=== PATIENT | female | born 1995 | race Caucasian/White ===

== ENCOUNTER 2017-12-03 16:47 | Inpatient (IN) | payer OTHER ==
[2017-12-03 17:22] LABS: ABS Basophils 0.1 10^3/ul (0-0.2); ABS Eosinophils 0.1 10^3/ul (0-0.6); ABS Lymphocytes 2.8 10^3/ul (1.0-4.8); ABS Monocytes 0.7 10^3/ul (0-0.8); ABS Neutrophils 5.4 10^3/ul (1.5-7.7); ABS Nucleated RBC 0 10^3/ul; Eosinophil % 1.3 % (0-6); Hematocrit 42 % (35-47); Hemoglobin 14.7 g/dl (12.0-16.0); Lymphocyte % 30.8 % (25-47); Mean Corpuscular HGB Conc 35 g/dl (31-36); Mean Corpuscular Hemoglobin 33 pg (27-31); Mean Corpuscular Volume 92 fL (80-97); Mean Platelet Volume 7.8 um3 (7.4-10.4); Nucleated Red Blood Cells % 0; Platelet Count 296 10^3/ul (150-450); Red Blood Count 4.54 10^6/ul (4.00-5.40); Red Cell Distribution Width 13 % (10.5-15)
[2017-12-03] MEDS ORDERED: ALPRAZolam TAB* 0.5 MG PO ONE (17:25)
[2017-12-03 17:45] LABS: EGFR Non-African American 86.8 (>60)
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
[2017-12-03] MEDS ORDERED: LORazepam TAB(*) 1 MG PO ONE (21:06)
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
[2017-12-03 23:43] LABS: Urine Appearance Clear; Urine Blood Negative (Negative); Urine Color Yellow; Urine Ketones 2+ (Negative); Urine Protein Negative (Negative); Urine Specific Gravity 1.011 (1.010-1.030); Urine Urobilinogen Negative (Negative)
[2017-12-04] MEDS ORDERED: Al Hydrox/Mg Hydrox/Simet LIQ* 30 ML UDC PO PRN (01:36)
[2017-12-04] MEDS: QUEtiapine TAB* 300 MG PO SCH ×2 (02:31→22:12)
[2017-12-04] MEDS: Vitamin THERAPEUTIC TAB PO SCH (11:05)
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
[2017-12-04] MEDS: Acetaminophen TAB* 325 MG PO PRN (22:13)
[2017-12-05] MEDS: Vitamin THERAPEUTIC TAB PO SCH (08:42)
[2017-12-05] MEDS ORDERED: Mouth Piece, Nicotine* 1 EACH CARTRIDGE INH PRN (11:06)
[2017-12-05] MEDS: Nicotine Inhaler* 10 MG AMP INH PRN (11:54)
[2017-12-05] MEDS: Nicotine GUM* 2 MG PO PRN ×2 (11:54→20:24)
[2017-12-05] MEDS ORDERED: traZODone TAB* 50 MG TAB PO PRN (14:48)
[2017-12-05] MEDS ORDERED: hydrOXYzine HCL TAB* 50 MG PO PRN (14:49)
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
[2017-12-06] MEDS: Nicotine Inhaler* 10 MG AMP INH PRN ×2 (08:00→12:36)
[2017-12-06] MEDS: Vitamin THERAPEUTIC TAB PO SCH (08:00)
[2017-12-06] MEDS: Acetaminophen TAB* 325 MG PO PRN ×3 (08:00→12:36)
[2017-12-06] MEDS: Nicotine PATCH 21 MG/24 HR* PATCH TRANSDERM SCH (08:01)
[2017-12-06] MEDS: Ibuprofen TAB* 600 MG PO PRN ×2 (10:17)
[2017-12-06] MEDS: Nicotine GUM* 2 MG PO PRN ×2 (12:36→22:17)
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
--- NOTE | 2017-12-06 17:30 | PN ---
[facility]: Group Therapy Note - Service Type Service Type: [id number] Group Psychotherapy - Medication Education Group: Patient attended group and presented with flat affect that did not vary with discussion. Although responsive to direct prompts to respond to questions, patient did not engage in spontaneous conversation.
[2017-12-06] MEDS ORDERED: Nicotine Patch Removal NOTE PATCH OFF SCH (21:00)
[2017-12-06] MEDS ORDERED: traZODone TAB* 50 MG TAB PO SCH (21:00)
[2017-12-07 07:56] VITALS: BP 123/75
[2017-12-07] MEDS: Nicotine PATCH 21 MG/24 HR* PATCH TRANSDERM SCH (09:18)
[2017-12-07] MEDS: Vitamin THERAPEUTIC TAB PO SCH (09:18)
[2017-12-07] MEDS: Nicotine GUM* 2 MG PO PRN ×2 (09:20→17:21)
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
== END 2017-12-07 18:30 | disposition home or self-care (01) | DRG 882 ==
LOC: ED 16:47 → BSU 22:45
PROVIDERS: ADMIT Psychiatry & Neurology Psychiatry; ATTEND Psychiatry & Neurology Psychiatry
PROC: GZHZZZZ Group Psychotherapy (ICD-10-PCS; principal; 2017-12-06)
DX: F43.25 Adjustment disorder with mixed disturbance of emotions and conduct (principal); R45.851 Suicidal ideations; H54.8 Legal blindness, as defined in USA; F41.9 Anxiety disorder, unspecified; Z62.810 Personal history of physical and sexual abuse in childhood; F17.210 Nicotine dependence, cigarettes, uncomplicated; F12.90 Cannabis use, unspecified, uncomplicated; F32.9 Major depressive disorder, single episode, unspecified; Z72.89 Other problems related to lifestyle; Z81.1 Family history of alcohol abuse and dependence; Z81.8 Family history of other mental and behavioral disorders
CPT/HCPCS: 36415; 80053; 80061; 80307; 80320; 80329; 81003; 81015; 83036; 84443; 84702; 85025; 87086; 90853; 99222; 99232; 99238; 99283; A9270-GY; G0480

== ENCOUNTER 2017-12-24 17:39 | Inpatient (IN) | payer OTHER ==
[2017-12-24 19:53] LABS: ABS Basophils 0.1 10^3/ul (0-0.2); ABS Eosinophils 0.4 10^3/ul (0-0.6); ABS Lymphocytes 2.7 10^3/ul (1.0-4.8); ABS Monocytes 0.7 10^3/ul (0-0.8); ABS Neutrophils 5.9 10^3/ul (1.5-7.7); ABS Nucleated RBC 0 10^3/ul; Eosinophil % 3.9 % (0-6); Hematocrit 43 % (35-47); Hemoglobin 14.7 g/dl (12.0-16.0); Lymphocyte % 27.4 % (25-47); Mean Corpuscular HGB Conc 35 g/dl (31-36); Mean Corpuscular Hemoglobin 32 pg (27-31); Mean Corpuscular Volume 93 fL (80-97); Nucleated Red Blood Cells % 0.1; Platelet Count 288 10^3/ul (150-450); Red Blood Count 4.55 10^6/ul (4.00-5.40); Red Cell Distribution Width 13 % (10.5-15); White Blood Count 9.7 10^3/ul (3.5-10.8)
[2017-12-24 20:12] LABS: EGFR Non-African American 73.4 (>60)
--- NOTE | 2017-12-24 23:30 | ED ---
Altered Mental Status - HPI Summary HPI Summary: Pt is a 22 y/o F w/ c/o depression. She reports that she believed today was going to be a good day and that she took her prescribed medicine. 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 She recently told her family about her addiction. She notes that she does not like to talk about things she does not want to and claims that she got , "tricked" into talking about things she does not like tonight. Pain is denied on triage. - History Of Current Complaint Chief Complaint: EDMentalHealth Stated Complaint: MHE Time Seen by Provider: 12/24/17 19:24 Hx Obtained From: Patient Onset/Duration: Still Present Timing: Lasting Days - onset today, Pt did not specify time Severity Currently: None - pain is denied on triage Aggravating Factor(s): Nothing Alleviating Factor(s): Nothing - Allergies/Home Medications Allergies/Adverse Reactions: Allergies Allergy/AdvReac Type Severity Reaction Status Date / Time No Known Allergies Allergy Verified 12/04/17 01:14 PMH/Surg Hx/FS Hx/Imm Hx GI History: Reports: Hx Irritable Bowel - Constipation Musculoskeletal History: Reports: Hx Back Problems Sensory History: Reports: Hx Legally Blind Denies: Hx Contacts or Glasses, Hx Deafness, Hx Hearing Aid Opthamlomology History: Reports: Hx Legally Blind Denies: Hx Contacts or Glasses Neurological History: Reports: Hx Headaches, Hx Migraine, Other Neuro Impairments/Disorders - Hx of concussions Psychiatric History: Reports: Hx Anxiety, Hx Eating Disorder - Anorexia/Bulimia , Hx Depression, Hx of Violent Episodes Against Others Denies: Hx Schizophrenia, Hx Substance Abuse Infectious Disease History: No Infectious Disease History: Denies: Traveled Outside the [place] in Last 30 Days - Family History Known Family History: Positive: Other Negative: Blood Disorder Family History: Pt denies any relevant family history. - Social History Alcohol Use: Occasionally Substance Use Type: Reports: None Smoking Status (MU): Never Smoked Tobacco Review of Systems Negative: Fever Positive: Depressed All Other Systems Reviewed And Are Negative: Yes Physical Exam - Summary Physical Exam Summary: Appearance: Well-appearing, Well-nourished, lying in bed comfortable Skin: Warm, dry, no obvious rash Eyes: sclera anicteric, no conjunctival pallor ENT: mucous membranes moist Neck: deferred Respiratory: No signs of respiratory distress Cardiovascular: Appears well perfused, pulses are nml Abdomen: deferred Musculoskeletal: Moving all 4 extremities without obvious discomfort Neurological: Awake and alert, mentation is normal, speech is fluent and appropriate Triage Information Reviewed: Yes Vital Signs On Initial Exam: Initial Vitals Temp Pulse Resp BP Pulse Ox 98.3 F 97 16 144/87 100 12/24/17 17:41 12/24/17 17:41 12/24/17 17:41 12/24/17 17:41 12/24/17 17:41 Vital Signs Reviewed: Yes Diagnostics - Vital Signs Vital Signs Temp Pulse Resp BP Pulse Ox 12/24/17 17:41 98.3 F 97 16 144/87 100 - Laboratory Lab Results: Lab Results 12/24/17 12/24/17 Range/Units 19:43 19:43 WBC 9.7 (3.5-10.8) 10^3/ul RBC 4.55 (4.00-5.40) 10^6/ul Hgb 14.7 (12.0-16.0) g/dl Hct 43 (35-47) % MCV 93 (80-97) fL MCH 32 H (27-31) pg MCHC 35 (31-36) g/dl RDW 13 (10.5-15) % Plt Count 288 (150-450) 10^3/ul MPV 8.0 (7.4-10.4) um3 Neut % (Auto) 60.8 (38-83) % Lymph % (Auto) 27.4 (25-47) % Emanuel % (Auto) 6.7 (0-7) % Eos % (Auto) 3.9 (0-6) % Baso % (Auto) 1.2 (0-2) % Absolute Neuts (auto) 5.9 (1.5-7.7) 10^3/ul Absolute Lymphs (auto) 2.7 (1.0-4.8) 10^3/ul Absolute Monos (auto) 0.7 (0-0.8) 10^3/ul Absolute Eos (auto) 0.4 (0-0.6) 10^3/ul Absolute Basos (auto) 0.1 (0-0.2) 10^3/ul Absolute Nucleated RBC 0 10^3/ul Nucleated RBC % 0.1 Sodium 140 (135-145) mmol/L Potassium 4.5 (3.5-5.0) mmol/L Chloride 105 (101-111) mmol/L Carbon Dioxide 29 (22-32) mmol/L Anion Gap 6 (2-11) mmol/L BUN 10 (6-24) mg/dL Creatinine 0.96 H (0.51-0.95) mg/dL Est GFR ( Amer) 88.8 (>60) Est GFR (Non-Af Amer) 73.4 (>60) BUN/Creatinine Ratio 10.4 (8-20) Glucose 75 (70-100) mg/dL Calcium 9.7 (8.6-10.3) mg/dL Total Bilirubin 0.30 (0.2-1.0) mg/dL AST 25 (13-39) U/L ALT 10 (7-52) U/L Alkaline Phosphatase 69 (34-104) U/L Total Protein 7.2 (6.4-8.9) g/dL Albumin 4.3 (3.2-5.2) g/dL Globulin 2.9 (2-4) g/dL Albumin/Globulin Ratio 1.5 (1-3) Beta HCG, Quant < 0.60 mIU/mL Result Diagrams: 12/24/17 19:43 12/24/17 19:43 Lab Statement: Any lab studies that have been ordered have been reviewed, and results considered in the medical decision making process. Discharge - Discharge Plan Referrals: Elise FOSTER,Noemi [Primary Care Provider] -
--- NOTE | 2017-12-25 07:11 | PN ---
ED Flex Patient Progress Note Subjective: This is a 22 year-old F who is pending psychiatric evaluation secondary to ____ __depression, h/o substance abuse . Pt offers no complaints at this time. Objective: Vitals: Most recent vital signs documented below. General: resting in bed - easily rousable, NAD, Alert and oriented x3. Heart: rrr,. S1/S2 Lungs: CTA, Breathing easily AB: + BS, soft, NTTP Psych: calm, cooperative, mildly irritable Laboratory: Current laboratory results documented below. Assessment: depression Plan: Pending psychiatric evaluation. Will follow up daily __while in ED___. Vital Signs Temp Pulse Resp BP Pulse Ox 98.2 F 83 16 127/79 100 12/25/17 02:20 12/25/17 02:20 12/25/17 02:20 12/25/17 02:20 12/25/17 02:20 Lab Results - Entire Visit 12/24/17 12/24/17 12/24/17 19:43 19:43 02:16 WBC 9.7 RBC 4.55 Hgb 14.7 Hct 43 MCV 93 MCH 32 H MCHC 35 RDW 13 Plt Count 288 MPV 8.0 Neut % (Auto) 60.8 Lymph % (Auto) 27.4 [place] % (Auto) 6.7 Eos % (Auto) 3.9 Baso % (Auto) 1.2 Absolute Neuts (auto) 5.9 Absolute Lymphs (auto) 2.7 Absolute Monos (auto) 0.7 Absolute Eos (auto) 0.4 Absolute Basos (auto) 0.1 Absolute Nucleated RBC 0 Nucleated RBC % 0.1 Sodium 140 Potassium 4.5 Chloride 105 Carbon Dioxide 29 Anion Gap 6 BUN 10 Creatinine 0.96 H Est GFR ( Amer) 88.8 Est GFR (Non-Af Amer) 73.4 BUN/Creatinine Ratio 10.4 Glucose 75 Calcium 9.7 Total Bilirubin 0.30 AST 25 ALT 10 Alkaline Phosphatase 69 Total Protein 7.2 Albumin 4.3 Globulin 2.9 Albumin/Globulin Ratio 1.5 Beta HCG, Quant < 0.60 Urine Opiates Screen None detected Ur Barbiturates Screen None detected Ur Phencyclidine Scrn None detected Ur Amphetamines Screen None detected U Benzodiazepines Scrn None detected Urine Cocaine Screen None detected U Cannabinoids Screen Presumptive positive A
[2017-12-25] MEDS ORDERED: Al Hydrox/Mg Hydrox/Simet LIQ* 30 ML UDC PO PRN (14:57)
[2017-12-25] MEDS: hydrOXYzine HCL TAB* 50 MG PO PRN (20:30)
[2017-12-25] MEDS: traZODone TAB* 50 MG TAB PO SCH (20:30)
[2017-12-25] MEDS: Acetaminophen TAB* 325 MG PO PRN (20:31)
[2017-12-25] MEDS ORDERED: Mouth Piece, Nicotine* 1 EACH CARTRIDGE INH ONE (22:00)
[2017-12-26] MEDS: Vitamin THERAPEUTIC TAB PO SCH (08:47)
[2017-12-26] MEDS: Nicotine Inhaler* 10 MG AMP Q2H PRN CRAVING INH (08:47)
[2017-12-26] MEDS: FLUoxetine CAP* 20 MG PO SCH (08:47)
[2017-12-26] MEDS: Acetaminophen TAB* 325 MG PO PRN ×2 (08:47→23:40)
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
[2017-12-26] MEDS: hydrOXYzine HCL TAB* 50 MG PO PRN (17:55)
[2017-12-26] MEDS: traZODone TAB* 50 MG TAB PO SCH ×2 (20:48→23:40)
[2017-12-27] MEDS: FLUoxetine CAP* 20 MG PO SCH (08:29)
[2017-12-27] MEDS: Vitamin THERAPEUTIC TAB PO SCH (08:29)
[2017-12-27] MEDS: Acetaminophen TAB* 325 MG PO PRN ×2 (08:30→20:44)
[2017-12-27] MEDS: Nicotine Inhaler* 10 MG AMP Q2H PRN CRAVING INH ×2 (10:30→20:44)
--- NOTE | 2017-12-27 11:35 | PN ---
[facility]: Group Therapy Note - Service Type Service Type: 10772 Group Psychotherapy - Cognitive Behavioral Group Therapy ( CBT):Patient attended CBT programming this morning and presented with flat affect that did not vary with discussion. Although responsive to direct prompts to respond to questions, patient did not engage in spontaneous conversation.
--- NOTE | 2017-12-27 15:39 | PN ---
Subjective - Subjective Date of Service: 12/27/17 Service Type: 23960 Hosp care 25 min moderate complexity Subjective: Patient has been fully participating in programming and in behavioral control. During 1:1 conversations, she is tearful and self-deprecating. She expresses fear of retaliation from interactions with drug dealers in [place] during her previous relationship. She blames family for not understanding her. She states she does not want to go to [facility] for outpatient appts. Transportation Clerk discussed basic concepts of CBT and DBT that will be helpful for her. She is instructed to work on mood/thought journal centered around cognitive distortions. Patient's godmother, Helene, present during visiting hours. She reports having reached out to [facility] and patient agrees to involve this agency in discharge planning. Objective - Appearance Appearance: Well Developed/Nourished Dysmorphic Features: Yes Hygiene: Normal Grooming: Well Kept - Behavior Psychomotor Activities: Normal Exhibits Abnormal Movement: No - Attitude and Relatedness Attitude and Relatedness: Cooperative Eye Contact: Good - Speech Quality: Unpressured Latencies: Normal Quantity: Appropriate - Mood Patient's Decription of Mood: "Terrible" - Affect Observed Affect: Depressed Affect Consistent with: Dysphoria - Thought Process Patient's Thought Process: Circumstantial Thought Content: No Passive Wish, No Suicidal Planning, No Homicidal Ideation, No Paranoid Ideation - Sensorium Experiencing Hallucinations: No, Sensorium is Clear Type of Hallucinations: Visual: No, Auditory: No, Command: No - Level of Consciousness Level of Consciousness: Alert Orientation: Yes Intact, Yes Orientated to Time, Yes Orientated to Place, Yes Orientated to Person - Impulse Control Impulse Control: Tenuous - Insight and Judgement Insight and Judgement: Poor - Group Participation Particating in Group Activities: Yes - Medication Management Medication Management Adherence: Yes Assessment - Assessment Merits Inpatient Hospitalization: For Immediate Safety, For Stabilization, For Discharge Planning Inpatient DSM-V Dx: F33.1 Clinical Impression: 22yo white female who presented to ED with godmother due to suicidal and paranoid statements. She was recently discharged from [facility] on 12/10/17 and has since stopped outpatient treatment. She merits hospitalization for immediate safety and stabilization. Plan - Plan Treatment Plan: Name: LAURA VELÁZQUEZ Birthdate: 1995 [id number] continue acute intensive psychiatric treatment. may decrease to q30min observation and allow staff pass/computer use. continue trial of fluoxetine, restart trazodone prn for insomnia and hydroxyzine prn for anxiety. family meeting tentatively scheduled for morning of 12/28/17. Continued Medication Management: Start Medication Medications: Current Medications Acetaminophen (Tylenol Tab*) 650 mg PO Q4H PRN PRN Reason: for pain; or Temp >101 F Last Admin: 12/27/17 08:30 Dose: 650 mg Al Hydrox/Mg Hydrox/Simethicone (Maalox Plus*) 30 ml PO Q4H PRN PRN Reason: INDIGESTION Fluoxetine HCl (Prozac Cap*) 20 mg PO DAILY [facility] Last Admin: 12/27/17 08:29 Dose: 20 mg Hydroxyzine HCl (Atarax Tab*) 50 mg PO BID PRN PRN Reason: ANXIETY Last Admin: 12/26/17 17:55 Dose: 50 mg Multivitamins (Theragran Tab*) 1 tab PO DAILY [facility] Last Admin: 12/27/17 08:29 Dose: 1 tab Nicotine (Nicotine Inhaler*) 10 mg INH Q2H PRN PRN Reason: CRAVING Last Admin: 12/27/17 10:30 Dose: 10 mg Trazodone HCl (Desyrel Tab*) 50 mg PO BEDTIME [facility] Last Admin: 12/26/17 23:40 Dose: 50 mg - Discharge Plan Discharge Plan: Outpatient Follow Up Outpatient Program: [facility]
--- NOTE | 2017-12-27 16:09 | PN ---
MHU: Group Therapy Note - Service Type Service Type: 11378 Group Psychotherapy - Group Participation Patient Participating in Group: Yes Level of Group Participation: Attentive Relatedness to Group: Well Related - Appearance Appearance: Healthy Appearing Hygiene: Normal Grooming: Well Kept - Behavior Psychomotor Activities: Normal Exhibits Abnormal Movement: No - Attitude and Relatedness Attitude and Relatedness: Well Related Eye Contact: Good - Speech Quantity: Appropriate - Affect Observed Affect: Constricted - Thought Process Patient's Thought Process: Coherent - Sensorium Experiencing Hallucinations: No, Sensorium is Clear Type of Hallucinations: Visual: No, Auditory: No, Command: No - Level of Consciousness Level of Consciousness: Alert Orientation: Yes Intact, Yes Orientated to Time, Yes Orientated to Place, Yes Orientated to Person - Impulse Control Impulse Control: Intact - Additional Group Comments Group Comments: Clare participated well. She was somewhat quiet, but appreciated the content and was happy to be in group.
[2017-12-27] MEDS: hydrOXYzine HCL TAB* 50 MG PO PRN ×2 (16:44→20:44)
[2017-12-27] MEDS: traZODone TAB* 50 MG TAB PO SCH (20:44)
[2017-12-28] MEDS: Vitamin THERAPEUTIC TAB PO SCH (08:23)
[2017-12-28] MEDS: Acetaminophen TAB* 325 MG PO PRN ×2 (08:24→18:16)
[2017-12-28] MEDS: FLUoxetine CAP* 20 MG PO SCH (08:24)
--- NOTE | 2017-12-28 08:43 | PN ---
Subjective - Subjective Service Type: 14228 Hosp care 25 min moderate complexity Subjective: Patient reports difficult sleep due to back pain. She agrees to trial of lidocaine patch. Patient agrees to meet with treatment team, her godmother Helene and her mother Jeaneth via phone. Discussed patient's presentation on the unit and suggestions for outpatient treatment. Patient tearful when discussing stressors : previous substance use, gender identity, mother's alcohol use. Providers facilitated assertive communication between patient, Jeaneth and Helene. Patient denies readiness for discharge today. Objective - Appearance Appearance: Well Developed/Nourished Dysmorphic Features: Yes Hygiene: Normal Grooming: Well Kept - Behavior Psychomotor Activities: Normal Exhibits Abnormal Movement: No - Attitude and Relatedness Attitude and Relatedness: Cooperative Eye Contact: Fair - Speech Quality: Unpressured Latencies: Normal Quantity: Appropriate - Mood Patient's Decription of Mood: "frustrated" - Affect Observed Affect: Depressed Affect Consistent with: Dysphoria - Thought Process Patient's Thought Process: Coherent, Over Inclusive Thought Content: No Passive Wish, No Suicidal Planning, No Homicidal Ideation, No Paranoid Ideation - Sensorium Experiencing Hallucinations: No, Sensorium is Clear Type of Hallucinations: Visual: Yes, Auditory: Yes, Command: Yes - Level of Consciousness Level of Consciousness: Alert Orientation: Yes Intact, Yes Orientated to Time, Yes Orientated to Place, Yes Orientated to Person - Impulse Control Impulse Control: Poor - Insight and Judgement Insight and Judgement: Poor - Group Participation Particating in Group Activities: Yes - Medication Management Medication Management Adherence: Yes Assessment - Assessment Merits Inpatient Hospitalization: For Immediate Safety, For Stabilization, Consolidate Improvements, For Discharge Planning Inpatient DSM-V Dx: F33.1 Clinical Impression: 22yo white female who presented to ED with godmother due to suicidal and paranoid statements. She was recently discharged from [facility] on 12/10/17 and has since stopped outpatient treatment. She is tolerating medication titration and benefitting from [facility] programming. She merits hospitalization for immediate safety and stabilization. Plan - Plan Treatment Plan: Name: LAURA VELÁZQUEZ Birthdate: 1995 [id number] continue acute intensive psychiatric treatment. may decrease to q30min observation and allow staff pass/computer use. continue trial of fluoxetine, restart trazodone prn for insomnia and hydroxyzine prn for anxiety. family meeting tentatively scheduled for morning of 12/28/17. Continued Medication Management: Start Medication Medications: Current Medications Acetaminophen (Tylenol Tab*) 650 mg PO Q4H PRN PRN Reason: for pain; or Temp >101 F Last Admin: 12/28/17 08:24 Dose: 650 mg Al Hydrox/Mg Hydrox/Simethicone (Maalox Plus*) 30 ml PO Q4H PRN PRN Reason: INDIGESTION Fluoxetine HCl (Prozac Cap*) 20 mg PO DAILY [facility] Last Admin: 12/28/17 08:24 Dose: 20 mg Hydroxyzine HCl (Atarax Tab*) 50 mg PO BID PRN PRN Reason: ANXIETY Last Admin: 12/27/17 20:44 Dose: 50 mg Lidocaine (Lidoderm 5% Patch*) 1 patch TRANSDERM DAILY [facility] Multivitamins (Theragran Tab*) 1 tab PO DAILY [facility] Last Admin: 12/28/17 08:23 Dose: 1 tab Nicotine (Nicotine Inhaler*) 10 mg INH Q2H PRN PRN Reason: CRAVING Last Admin: 12/27/17 20:44 Dose: 10 mg Pharmacy Profile Note (Lidocaine Patch Remove*) 1 note N/A 2100 [facility] Trazodone HCl (Desyrel Tab*) 50 mg PO BEDTIME [facility] Last Admin: 12/27/17 20:44 Dose: 50 mg - Discharge Plan Discharge Plan: Outpatient Follow Up Outpatient Program: [facility]
[2017-12-28] MEDS: Lidocaine PATCH 5%* 1 PATCH TRANSDERM SCH (11:22)
[2017-12-28] MEDS: Nicotine Inhaler* 10 MG AMP Q2H PRN CRAVING INH (12:48)
[2017-12-28] MEDS: hydrOXYzine HCL TAB* 50 MG PO PRN ×2 (12:48→18:16)
[2017-12-28] MEDS: traZODone TAB* 50 MG TAB PO SCH (21:55)
[2017-12-28] MEDS: Lidocaine Patch REMOVE* 1 NOTE MISC SCH (21:55)
[2017-12-29] MEDS: FLUoxetine CAP* 20 MG PO SCH (09:11)
[2017-12-29] MEDS: Vitamin THERAPEUTIC TAB PO SCH (09:11)
[2017-12-29] MEDS: Lidocaine PATCH 5%* 1 PATCH TRANSDERM SCH (10:11)
[2017-12-29] MEDS: Nicotine Inhaler* 10 MG AMP Q2H PRN CRAVING INH ×2 (12:48→18:38)
[2017-12-29] MEDS: hydrOXYzine HCL TAB* 50 MG PO PRN (12:49)
[2017-12-29] MEDS: traZODone TAB* 50 MG TAB PO SCH (20:50)
[2017-12-29] MEDS: Lidocaine Patch REMOVE* 1 NOTE MISC SCH (20:51)
[2017-12-30] MEDS: FLUoxetine CAP* 20 MG PO SCH (08:47)
[2017-12-30] MEDS: Vitamin THERAPEUTIC TAB PO SCH (08:47)
[2017-12-30] MEDS: Lidocaine PATCH 5%* 1 PATCH TRANSDERM SCH (10:05)
[2017-12-30] MEDS: Nicotine Inhaler* 10 MG AMP Q2H PRN CRAVING INH (16:19)
[2017-12-30] MEDS: hydrOXYzine HCL TAB* 50 MG PO PRN (16:19)
--- NOTE | 2017-12-30 18:27 | PN ---
Subjective - Subjective Date of Service: 12/30/17 Service Type: 56113 Hosp care 15 min low complexity Subjective: Ashley says she is doing very well and ready for discharge. Denies hallucinations , delusions , SI or HI. In the milieu engaged with peers. Objective - Appearance Appearance: Healthy Appearing Dysmorphic Features: No Hygiene: Normal Grooming: Well Kept - Behavior Psychomotor Activities: Normal Exhibits Abnormal Movement: No - Attitude and Relatedness Attitude and Relatedness: Appropriate Eye Contact: Good - Speech Quality: Unpressured Latencies: Normal Quantity: Appropriate - Mood Patient's Decription of Mood: "Good" - Affect Observed Affect: Non-labile - Thought Process Patient's Thought Process: Coherent, Incoherent Thought Content: No Passive Wish, No Suicidal Planning, No Homicidal Ideation, No Paranoid Ideation - Sensorium Experiencing Hallucinations: No, Sensorium is Clear Type of Hallucinations: Visual: No, Auditory: No, Command: No - Level of Consciousness Level of Consciousness: Alert Orientation: Yes Intact, Yes Orientated to Time, Yes Orientated to Place, Yes Orientated to Person - Impulse Control Impulse Control: Intact - Insight and Judgement Insight and Judgement: Fair - Group Participation Particating in Group Activities: Yes - Medication Management Medication Management Adherence: Yes Assessment - Assessment Merits Inpatient Hospitalization: Consolidate Improvements, For Discharge Planning Inpatient DSM-V Dx: F33.1 Clinical Impression: Stable psychiatrically and ready for discharge. Plan - Plan Treatment Plan: Name: LAURA VELÁZQUEZ Birthdate: 1995 [id number] Continued Medication Management: Continue Outpt Medication Medications: Current Medications Acetaminophen (Tylenol Tab*) 650 mg PO Q4H PRN PRN Reason: for pain; or Temp >101 F Last Admin: 12/28/17 18:16 Dose: 650 mg Al Hydrox/Mg Hydrox/Simethicone (Maalox Plus*) 30 ml PO Q4H PRN PRN Reason: INDIGESTION Fluoxetine HCl (Prozac Cap*) 20 mg PO DAILY [facility] Last Admin: 12/30/17 08:47 Dose: 20 mg Hydroxyzine HCl (Atarax Tab*) 50 mg PO BID PRN PRN Reason: ANXIETY Last Admin: 12/30/17 16:19 Dose: 50 mg Lidocaine (Lidoderm 5% Patch*) 1 patch TRANSDERM DAILY [facility] Last Admin: 12/30/17 10:05 Dose: 1 patch Multivitamins (Theragran Tab*) 1 tab PO DAILY [facility] Last Admin: 12/30/17 08:47 Dose: 1 tab Nicotine (Nicotine Inhaler*) 10 mg INH Q2H PRN PRN Reason: CRAVING Last Admin: 12/30/17 16:19 Dose: 10 mg Pharmacy Profile Note (Lidocaine Patch Remove*) 1 note N/A [facility]100 [facility] Last Admin: 12/29/17 20:51 Dose: 1 note Trazodone HCl (Desyrel Tab*) 50 mg PO BEDTIME [facility] Last Admin: 12/29/17 20:50 Dose: 50 mg - Discharge Plan Discharge Plan: Outpatient Follow Up Outpatient Program: [facility]
[2017-12-30] MEDS: traZODone TAB* 50 MG TAB PO SCH (21:19)
[2017-12-30] MEDS: Lidocaine Patch REMOVE* 1 NOTE MISC SCH (21:21)
[2017-12-31] MEDS: FLUoxetine CAP* 20 MG PO SCH (09:07)
[2017-12-31] MEDS: Vitamin THERAPEUTIC TAB PO SCH (09:08)
[2017-12-31] MEDS: Nicotine Inhaler* 10 MG AMP Q2H PRN CRAVING INH (09:09)
[2017-12-31 10:16] VITALS: BP 110/78
[2017-12-31] MEDS: Lidocaine PATCH 5%* 1 PATCH TRANSDERM SCH (11:06)
--- NOTE | 2017-12-31 11:42 | PN ---
MHU: Group Therapy Note - Service Type Service Type: 10552 Group Psychotherapy - Cognitive Behavioral Group Therapy ( CBT):Patient was attentive and participatory in CBT programming this morning, and remained in good behavioral control. Patient expressed positive insights regarding relevant treatment interventions and goals.
== END 2017-12-31 18:15 | disposition home or self-care (01) | DRG 885 ==
LOC: ED 17:39 → BSU 12-25 14:57
PROVIDERS: ADMIT Psychiatry & Neurology Psychiatry; ATTEND Psychiatry & Neurology Psychiatry
DX: F33.1 Major depressive disorder, recurrent, moderate (principal); R45.851 Suicidal ideations; F12.10 Cannabis abuse, uncomplicated; F17.210 Nicotine dependence, cigarettes, uncomplicated; Z79.899 Other long term (current) drug therapy; Z81.1 Family history of alcohol abuse and dependence; Z81.8 Family history of other mental and behavioral disorders; Z81.3 Family history of other psychoactive substance abuse and dependence
CPT/HCPCS: 36415; 80053; 80061; 80307; 83036; 84702; 85025; 90853; 99222; 99231; 99232; 99283; A9270-GY